=== PATIENT | female | born 1995 | race African-American/Black ===

== ENCOUNTER 2024-02-12 04:33 | Emergency (ER) | payer OTHER, SELFPAY ==
--- NOTE | ~2024-02-12 | CT_ITS ---
Clinical Indication: Chest pain CT Scan of the Chest with Contrast: Technique: Contiguous sections were acquired throughout the chest after intravenous administration of 100 cc of Omnipaque 350. Dose reduction technique was used on this scan by utilizing automated expos ure control and iterative reconstruction technique. The dose-length product (DLP) was 196.91 mGy-cm. Findings: There is no evidence of any significant mediastinal, hilar or axillary lymphadenopathy. There is no f illing defect in the pulmonary arterial tree to suggest pulmonary embolus. There is no evidence of ao rtic dissection or aneurysm. There is no evidence of pleural or pericardial effusion. The lungs are clear. No pulmonary nodules or infiltrates are noted. Images through the upper abdomen reveal no abnormalities. Impression: No evidence of pulmonary embolus, aortic dissection, or aortic aneurysm. Clear lungs. Reviewed, dictated and finalized at [facility]. Impression: No evidence of pulmonary embolus, aortic dissection, or aortic aneurysm. Clear lungs.
[2024-02-12 04:33] VITALS: BP 130/77; PULSE 85; RESP 15; TEMP 36.8; O2SAT 100
--- NOTE | 2024-02-12 05:06 | ED.GENADULT ---
HPI - General Adult General Chief complaint: Anxiety <Arsenio Fields MD - Last Filed: 02/12/24 06:40> Stated complaint: ANXIETY ATTACK <Arsenio Fields MD - Last Filed: 02/12/24 06:40> Time Seen by Provider: 02/12/24 04:59 <Arsenio Fields MD - Last Filed: 02/12/24 06:40> History of Present Illness HPI narrative: This is a 28-year-old female presents to ED 5 days after of a 28 week gestation child for chest pain and anxiety. Patient was seen here 2 days ago for difficulty sleeping palpitation and GERD symptoms. That time she was treated with Maalox and [facility] where she was [facility] and discharged. However the patient continues to have difficulty sleeping. She says that she feels chest pressure and feels like she is coughing up mucus. she denies fevers nausea vomiting abdominal pain or lower extremity edema. Patient notes that she is having difficulty sleeping, feels guilty, has low energy decreased appetite and difficulty concentrating. She denies thoughts of harming herself or her child. No homicidal ideation. No history of depression. Patient's last visit (02/09)was logged under the name is Nazanin Haque. Accounts are being merged. <Arsenio Fields MD - Last Filed: 02/12/24 06:40> Related Data Allergies/adverse reactions: Allergies Allergy/AdvReac Type Severity Reaction Status Date / Time No Known Allergies Allergy Verified 02/12/24 05:17 <Arsenio Fields MD - Last Filed: 02/12/24 06:40> [facility] Surgical History Surgical History: Surgical History Hx of section <Arsenio Fields MD - Last Filed: 02/12/24 06:40> Social History Social History: Social History Substance use type: does not use <Arsenio Fields MD - Last Filed: 02/12/24 06:40> Exam Narrative: APPEARANCE: patient is tearful during the interview Head: atraumatic. EYES: EOMI, NOSE: Atraumatic NECK: Trachea midline RESPIRATORY: No increased rate of breathing, CTAB CARDIOVASCULAR: RRR, No peripheral edema ABDOMINAL: well healed scar w/o drainage or cellulitic changes. , no tenderness guarding or rebound MUSCULOSKELETAl: No obvious deformities NEURO: Alert. Moving 4/4 extremities SKIN:: Warm, dry. Normal color PSYCHIATRIC: tearful <Arsenio Fields MD - Last Filed: 02/12/24 06:40> Course Reevaluation(s) Reevaluation #1: Patient care was signed out to be by the overnight physician with the plan for a pending delta troponin. Patient declined the repeat troponin prefers to have follow-up as outpatient. [facility]. <Sathish Coronel MD - Last Filed: 02/12/24 14:34> Vital Signs Vital signs: Vital Signs Temperature 98.3 F 02/12/24 04:33 Pulse Rate 85 02/12/24 04:33 Respiratory Rate 15 02/12/24 04:33 Blood Pressure 130/77 02/12/24 04:33 Pulse Oximetry 100 02/12/24 04:33 Oxygen Delivery Room Air 02/12/24 04:33 Temperature 98.3 F 02/12/24 04:33 Pulse Rate 75 02/12/24 08:25 Respiratory Rate 16 02/12/24 08:25 Blood Pressure 132/80 02/12/24 08:25 Pulse Oximetry 99 02/12/24 08:25 Oxygen Delivery Room Air 02/12/24 04:33 <Arsenoi Fields MD - Last Filed: 02/12/24 06:40> Vital Signs Temperature 98.3 F 02/12/24 04:33 Pulse Rate 85 02/12/24 04:33 Respiratory Rate 15 02/12/24 04:33 Blood Pressure 130/77 02/12/24 04:33 Pulse Oximetry 100 02/12/24 04:33 Oxygen Delivery Room Air 02/12/24 04:33 Temperature 98.3 F 02/12/24 04:33 Pulse Rate 75 02/12/24 08:25 Respiratory Rate 16 02/12/24 08:25 Blood Pressure 132/80 02/12/24 08:25 Pulse Oximetry 99 02/12/24 08:25 Oxygen Delivery Room Air 02/12/24 04:33 <Sathish Coronel MD - Last Filed: 02/11
[2024-02-12] MEDS: diazePAM INJ (*CRX) 10 MG/2 ML SYRINGE 5 MG IV PUSH (05:23)
[2024-02-12 05:25] LABS: Basophils Percent Auto 0.3 % (0.2-1.2); Eosinophils Percent Auto 0.3 % (0-4.4); Hematocrit 25.3 % (37.0-47.0); Hemoglobin 8.4 g/dL (12.0-15.0); Immature Granulocyte Absolute 0.03 K/mm3 (0.00-0.031); Immature Granulocyte Percent A 0.4 % (0-0.5); Lymphocytes Absolute Auto 2.22 K/mm3 (0.9-3.2); Lymphocytes Percent Auto 32.7 % (18.3-44.2); Mean Corpuscular HGB Conc 33.2 g/dl (32-36); Mean Corpuscular Hemoglobin 30.1 pg (26-34); Mean Corpuscular Volume 90.7 fl (80-100); Mean Platelet Volume 10.4 fl (7.4-10.4); Monocytes Absolute Auto 0.5 K/mm3 (0.1-0.6); Monocytes Percent Auto 6.8 % (2.6-8.5); Neutrophils Percent Auto 59.5 % (45.5-73.1); Platelet Count Result 233 k/mm3 (150-375); Red Blood Count 2.79 M/mm3 (4.2-5.4); Red Cell Distribution Width 13.1 % (11.5-14.5); White Blood Count 6.8 K/mm3 (4.5-10.0)
[2024-02-12 05:43] LABS: Alanine Aminotransferase 90 U/L (6-35); Albumin Level 4.1 g/dL (3.5-5.1); Alkaline Phosphatase 56 U/L (38-126); Anion Gap 7 mmol/L (4-12); Aspartate Amino Transferase 71 U/L (14-36); Bilirubin,Total 0.6 mg/dL (0.2-1.3); Blood Urea Nitrogen 6 mg/dL (7-17); Calcium 9.6 mg/dL (8.4-10.2); Carbon Dioxide 24 mmol/L (22-30); Chloride 106 mmol/L (98-107); Estimated CRCL calculation 102 ml/min; Estimated Glomerular Filt Rate > 60; Glucose 97 mg/dL (65-110); Potassium 3.5 mmol/L (3.4-5.0); Sodium 137 mmol/L (137-145)
[2024-02-12 06:01] LABS: NT Pro B Type Natriuretic Pept < 20 pg/mL (19.9-100); Troponin I < 0.012 ng/mL (0.000-0.034)
[2024-02-12 07:04] LABS: Appearance Urine Clear (Clear); Bacteria Urine None Seen /hpf; Bilirubin Urine Negative (Negative); Blood Urine 3+ (Negative); Color Urine Yellow (Yellow); Glucose Urine UA Negative (Negative); Ketones Urine Negative (Negative); Leukocyte Esterase Ur Trace LEU/UL (Negative); Need Manual Microscopic Reviewed; Nitrate Urine Negative (Negative); Non Pathogenic Casts 0-2; Protein Urine Negative (Negative); RBC Urine 21-50 /hpf (0-2); Specific Grav Ur 1.011 (1.001-1.035); Squamous Epithelial Cell Urine None Seen /hpf (Few); Urobilinogen Urine 0.2 mg/dL (<2.0); WBC Urine 0-5 /hpf (0-3)
[2024-02-12 07:07] LABS: Influenza A QL RT-PCR Negative (Negative); Influenza B QL RT-PCR Negative (Negative); RSV RNA, RT-PCR Negative (Negative); SARS-CoV-2 RNA PCR Negative (Negative)
[2024-02-12 07:15] VITALS: BP 140/82; PULSE 71; RESP 16; O2SAT 98
[2024-02-12 07:21] LABS: Add Urine Microscopic? YES
[2024-02-12 08:25] VITALS: BP 132/80; PULSE 75; RESP 16; O2SAT 99
== END 2024-02-12 08:25 | disposition home or self-care (01) ==
PROVIDERS: Emergency Provider Emergency Medicine
DX: O99.345 Other mental disorders complicating the puerperium (principal); F53.0 Postpartum depression; F32.A Depression, unspecified; Z20.822 Contact with and (suspected) exposure to COVID-19
CPT/HCPCS: 36415; 71275; 80053; 81001; 83880; 84484; 85025; 87637; 96374; 99284; J3360; Q9967

== ENCOUNTER 2024-03-11 06:09 | Emergency (ER) | payer OTHER, SELFPAY ==
[2024-03-11 06:09] VITALS: BP 107/81; PULSE 84; RESP 14; TEMP 36.4; O2SAT 100
[2024-03-11 06:16] VITALS: PULSE 90
--- NOTE | 2024-03-11 06:20 | ED.GENADULT ---
HPI - General Adult General Chief complaint: Unspecified Stated complaint: CHILLS & ACID reflux for 2 days Time Seen by Provider: 03/11/24 06:11 Source: patient History of Present Illness HPI narrative: 28-year-old female here for feeling chills and fatigue for the last week as well as issues with acid reflux and some going on for the last week as well. Long history of acid reflux. Not currently taking any medicine for it. History of iron deficiency anemia as well. Has not been taking her iron tablets as well. Has not taken anything for the acid reflux. Related Data Allergies Allergy/AdvReac Type Severity Reaction Status Date / Time No Known Allergies Allergy Verified 02/12/24 05:17 Review of Systems Review of Systems: All systems reviewed & are unremarkable except as noted in HPI and below PMFSH Surgical History Surgical History Hx of section Social History Social History Substance use type: does not use Exam Narrative: Constitutional: Generally well appearing, no acute distress Head: Atraumatic, no deformities. Eyes: Pupils equal, round, and reactive to light. Neck: Supple, no tracheal deviation, no JVD. ENMT: Mucous membranes moist Cardiovascular: S1, S2 auscultated. No murmurs, rubs, or gallops. No S3/S4. Normal Distal pulses. No peripheral edema. Respiratory: Lung sounds equal. No wheezes, rales, or rhonchi. Gastrointestinal: Abdomen was soft and non-tender. Non-distended. No rebound or guarding. Genitourinary: Deferred Musculoskeletal: Normal muscle tone and bulk. No obvious deformities or tenderness over extremities. Skin: No rashes. Neurological: Strength 5/5 in extremities. Cranial nerves I-XII grossly intact. Distal sensation intact. Mental Status: Awake, alert and oriented x3. Follows commands Course Vital Signs Vital signs: Vital Signs Temperature 36.4 C L 03/11/24 06:09 Pulse Rate 84 03/11/24 06:09 Respiratory Rate 14 03/11/24 06:09 Blood Pressure 107/81 03/11/24 06:09 Pulse Oximetry 100 03/11/24 06:09 Oxygen Delivery Room Air 03/11/24 06:09 Temperature 36.4 C L 03/11/24 06:09 Pulse Rate 82 03/11/24 06:27 Respiratory Rate 15 03/11/24 06:27 Blood Pressure 125/68 03/11/24 06:27 Pulse Oximetry 100 03/11/24 06:27 Oxygen Delivery Room Air 03/11/24 06:09 Medical Decision Making MDM Narrative Medical decision making narrative: 28-year-old female here with acid reflux symptoms. History of acid reflux in the past and feels it is similar. Not taking anything for it. Also been feeling kind of fatigued and chills for the last week and wanted to be evaluated to see if her iron was low. on exam she is well-appearing, normal vitals, no acute Abnormality on exam. based on history, sounds clearly like indigestion and will treat for that. Potentially could be anemic, was anemic previously. Will check CBC, BMP, and given GI cocktail slight hypokalemia but hemoglobin is normal. Will not give potassium right now given which is give a significant amount of anticholinergics and could cause irritation gastritis so discussed increasing potassium intake at home. Discharged with omeprazole and Mylanta. Pt feeling improved and would like to go home at this point. Return precautions were given to the patient include any new or worsening symptoms or development of and not limited to any chest pain, shortness of breath, lightheadedness, abdominal pain, fevers, chills. Patient understands and agrees. They are to follow-up with her PCP. All questions were answered. I reviewed the patient's vital signs, history, allergies, and labs and imaging workup. Vital Signs Vital Signs: Vital Signs Temperature 36.4 C L 03/11/24 06:09 Pulse Rate 84 03/11/24 06:09 Respiratory Rate 14 03/11/24 06:09 Blood Pressure 107/81 03/11/24 06:09
[2024-03-11 06:27] VITALS: BP 125/68; PULSE 82; RESP 15; O2SAT 100
[2024-03-11] MEDS: BELLADONNA ALK/PHENOB ELIX 10 ML, MAG HYDROX/ALUMINUM HYD/SIMETH 30 ML, LIDOCAINE HCL 2... PO (06:28)
[2024-03-11] MEDS: FAMOTIDINE 20 MG TABLET PO (06:29)
[2024-03-11 06:35] LABS: Basophils Percent Auto 0.4 % (0.2-1.2); Eosinophils Percent Auto 0.6 % (0-4.4); Hematocrit 34.1 % (37.0-47.0); Hemoglobin 11.4 g/dL (12.0-15.0); Lymphocytes Absolute Auto 2.36 K/mm3 (0.9-3.2); Lymphocytes Percent Auto 46.6 % (18.3-44.2); Mean Corpuscular HGB Conc 33.4 g/dl (32-36); Mean Corpuscular Hemoglobin 28.4 pg (26-34); Mean Platelet Volume 10.7 fl (7.4-10.4); Monocytes Absolute Auto 0.5 K/mm3 (0.1-0.6); Monocytes Percent Auto 8.9 % (2.6-8.5); Neutrophils Absolute Auto 2.2 K/mm3 (1.3-6.7); Neutrophils Percent Auto 43.5 % (45.5-73.1); Platelet Count Result 199 k/mm3 (150-375); Red Blood Count 4.01 M/mm3 (4.2-5.4); Red Cell Distribution Width 11.8 % (11.5-14.5); White Blood Count 5.1 K/mm3 (4.5-10.0)
[2024-03-11 06:45] LABS: Anion Gap 11 mmol/L (4-12); Blood Urea Nitrogen 4 mg/dL (7-17); Calcium 9.6 mg/dL (8.4-10.2); Carbon Dioxide 25 mmol/L (22-30); Chloride 102 mmol/L (98-107); Estimated CRCL calculation 88 ml/min; Estimated Glomerular Filt Rate > 60; Glucose 103 mg/dL (65-110); Potassium 3.3 mmol/L (3.4-5.0); Sodium 138 mmol/L (137-145)
== END 2024-03-11 06:56 | disposition home or self-care (01) ==
PROVIDERS: Emergency Provider Emergency Medicine
DX: K21.9 Gastro-esophageal reflux disease without esophagitis (principal); E87.6 Hypokalemia; D50.9 Iron deficiency anemia, unspecified
CPT/HCPCS: 36415; 80048; 85025; 99283; A9270